=== PATIENT | female | born 2000 | race Two or more races ===

== ENCOUNTER 2019-03-02 11:23 | Emergency (ER) | payer MEDICAID ==
--- NOTE | 2019-03-02 11:36 | EDPHY ---
General Time Seen by Provider: 03/02/19 11:36 Narrative: CLINICAL IMPRESSION: Upper abdominal pain ASSESSMENT/PLAN: Patient is a 18 year old female with a history of GERD who presents with nausea since September and ongoing upper abdominal pain for 6 days. Patient is afebrile , uncomfortable however not toxic appearing. Her abdomen was soft and non distended, she is tender generalized upper abdomen without focal peritoneal signs. CBC revealed mild leukocytosis, I suspect reactive. She has had no fever , her vital signs were reviewed and there was no evidence of sepsis or serious bacterial illness. BMP, lipase and hepatic panel all grossly unremarkable. Right upper quadrant ultrasound revealed no acute findings, mildly distended gallbladder. Workup reassuring, history and physical examination is most consistent with upper abdominal pain that completely resolved with Pepcid and GI cocktail. Query other etiologies such as PUD or GB dysfunction. There were no findings to suggest acute cholecystitis, pancreatitis, acute hepatitis, hepatobiliary obstruction, perforation, mesenteric ischemia or appendicitis. She had no pelvic complaints to suggest TOA, PID or ovarian torsion. She was given Pepcid and GI cocktail with resolution of symptoms. On repeat examination the patient is much more comfortable appearing, I was unable to reproduce any abdominal pain on re-examination. With benign repeat exam I did not feel that additional imaging to include CT was warranted at this time. I had case management visit with patient to facilitate getting established with [facility], GI referral also provided. She will continue Prilosec BID and will add Zantac to regimen. Conservative return precautions discussed with patient and mother- she will return for increased or unmanageable pain, fever, vomiting, CP, SOB or for any other concerning symptom. Patient and mother verbalize understanding and are in agreement with plan. DIFFERENTIAL DX: Abdominal pain including but not limited to appendicitis, cholecystitis, gastritis and urinary tract infection. ED COURSE: 1258: On repeat examination the patient is still tearful, she reports that her pain is better after receiving Pepcid. Her abdomen is soft with very mild tenderness to palpation in the epigastrium. There was no evidence of a surgical abdomen. Patient reports that she is just very scared and that is why she is crying. Still awaiting results of right upper quadrant ultrasound. 1305: Discussed ultrasound with Dr. Canchola, normal appearing gallbladder without evidence of stones or cholecystitis. 1309: Findings discussed with Dr. Rivera. 1348: On repeat examination in after GI cocktail patient has complete resolution of her pain. Her abdomen is soft, I am unable to elicit any tenderness to palpation. CHIEF COMPLAINT: Upper abdominal pain HPI: Patient is a 18-year-old female with a history of gastroesophageal reflux who presents to the emergency department complaining of upper abdominal pain that has been ongoing since last Sunday. Patient reports a sudden onset of epigastric pain last Sunday, he has been constant in her epigastrium as well as intermittently radiating into her right and left upper abdomen. Patient does endorse a previous evaluation of her gallbladder several years prior, was told that she has an abnormal gallbladder however is not sure exactly what was wrong with it. No gallbladder surgery was recommended. She did follow up with Gastroenterology, she was placed on Prilosec which she takes twice daily. Patient was seen and evaluated at urgent care yesterday, she was given a GI cocktail with improvement of her symptoms however she had recurrent symptoms this morning. She denies any fever or change in appetite. She has been experiencing some nausea in the mornings that has been ongoing since September, this is unchanged and she has had no vomiting. She denies any chest pain or shortness of breath. She denies any lower abdominal pain, pelvic pain, flank pain, vaginal pain or urinary symptoms. Bowel movements have been regular. PMH: GERD Pertinent Past Surgical History: Denies Family History: Not contributory Social History: Denies REVIEW OF SYSTEMS: All other systems negative Constitutional: No fever, no chills, appetite change. Eyes: No discharge, vision change ENT: No sore throat, congestion, ear pain. Cardiovascular: No chest pain, no palpitations. Respiratory: No cough, no shortness of breath. Gastrointestinal: Nausea, Upper abdominal pain, no diarrhea. Genitourinary: No hematuria, dysuria, flank pain, pelvic pain. Musculoskeletal: No back pain, joint swelling, joint pain, myalgias. Skin: No rashes, color change. Neurological: No headache, dizziness, weakness. PHYSICAL EXAM: General Appearance: Alert, tearful, uncomfortable appearing however not toxic appearing. HENT: Normocephalic, atraumatic. Bilateral external ears are normal. Bilateral tympanic membranes are normal with pearly templeton reflex. Nares are clear, mucosa is pink. Oropharynx is clear, mucosa moist, uvula is midline. There is no tonsillar enlargement or exudate. The dentition is normal. Eyes: PERRLA, EOMI. Conjunctiva pink, no pallor or injection. Neck: Supple, nontender, no lymphadenopathy, no midline pain, FROM. Respiratory: There are no retractions, lungs are clear to auscultation. Cardiac: Regular rate and rhythm, no murmurs or gallops. Gastrointestinal: Abdomen is soft, bowel sounds normal, no masses/hernia. Patient is diffusely tender in her upper abdomen, she grimaces during examination however there is no rigidity, guarding or focal peritoneal findings. She has no lower abdominal tenderness to palpation. Neurological: Alert and oriented x 3, CN 2-12 grossly intact, normal gait no ataxia, DTR's intact, normal sensation and strength. Skin: Warm, dry, no rashes, no nodules on palpation. Musculoskeletal: Extremities are symmetrical, full range of motion, no tenderness, deformity, swelling, or erythema. Psychiatric: Patient is oriented X 3, there is no agitation. MEDICAL DECISION MAKING: Patient was seen independently. Secondary supervising physician at time of evaluation was Dr. Rivera, he did not evaluate this patient however we discussed case, results and plan of care. Diagnosis: Upper abdominal pain. New, requires workup Summary: See Assessment and Plan for summary of ED visit Clinical lab tests: ordered / reviewed. Independent visualization of images, tracing, or specimens: Yes. Decision to obtain medical records or history from someone other than the patient: Yes, mother Review / Summarize previous medical records: Yes Discussed patient with another provider: Yes Patient Progress: Stable, discharge. - History Smoking Status: Never smoked - Objective Vital Signs: Initial Vital Signs Temperature (C) 37.4 C 03/02/19 11:26 Heart Rate 87 03/02/19 11:26 Respiratory Rate 17 03/02/19 11:26 Blood Pressure 96/77 L 03/02/19 11:26 O2 Sat (%) 98 03/02/19 11:26 O2 Delivery Mode Room Air Allergies/Adverse Reactions: No Known Allergies Allergy (Unverified 03/02/19 11:25) Home Medications: Medication Instructions Recorded Daniel 03/02/19 Laboratory Results: Laboratory Results 03/02/19 12:15 03/02/19 12:15 Medications Given: Discontinued Medications Al Hydroxide/Mg Hydroxide (Maalox Susp) 30 ml PO ONCE ONE Stop: 03/02/19 13:09 Last Admin: 03/02/19 13:25 Dose: 30 ml Famotidine (Pepcid) 20 mg IVP EDNOW ONE Stop: 03/02/19 11:52 Last Admin: 03/02/19 12:26 Dose: 20 mg Hyoscyamine Sulfate (Levsin, Hyomax-Sl) 0.25 mg PO ONCE ONE Stop: 03/02/19 13:09 Last Admin: 03/02/19 13:24 Dose: 0.25 mg Sodium Chloride (Ns) 1,000 mls @ 0 mls/hr IV ONCE ONE PRN Reason: Wide Open Stop: 03/02/19 11:52 Last Admin: 03/02/19 12:25 Dose: 1,000 mls Lidocaine (Lidocaine 2% Viscous) 15 ml PO ONCE ONE Stop: 03/02/19 13:09 Last Admin: 03/02/19 13:25 Dose: 15 ml Departure - Departure Disposition: Home, Routine, Self-Care Clinical Impression: Abdominal pain Condition: Good Instructions: Acute Abdominal Pain (ED) Additional Instructions: DISCHARGE INSTRUCTIONS FROM YOUR DOCTOR Thank you for visiting our emergency department today. Please keep in mind that discharge from the emergency department does not mean that there is nothing wrong - it simply means that we have not identified an emergency condition that requires further evaluation or treatment in the hospital. Please call to schedule an appointment to establish care [facility], please also call Gastroenterology to be seen next week. You may need additional testing to include an upper endoscopy or HIDA scan to further evaluate her gallbladder. Rest, push non-diuretic, non-caffeinated fluids, clear liquid diet, then a BRAT diet (bananas, rice, applesauce, toast), then slowly advance diet to normal. Attempt small frequent meals. Please avoid spicy foods or caffeine. Continued taking her Prilosec as directed, I recommend adding Zantac to her regimen-you may purchase this [id number] at the grocery store or pharmacy. Follow the instructions on the packaging. Take daily. Schedule a follow-up appointment with your primary care physician in the next 1- 2 days for re-evaluation. Bring a copy of your test results with you to that appointment. Return for increased or unmanageable pain, new site or character of pain, flank pain, groin pain, pelvic pain, development of fever, chills, recurrent vomiting , vomiting blood or coffee grounds, diarrhea, constipation, bloody stools, black tarry stools, burning or pain with urination, bloody urine, inability to urinate, decreased urine output or other signs of dehydration, dizziness, weakness, fainting, difficulty breathing or swallowing, chest pain, or for any other new, worsening or worrisome symptoms. People present with illnesses and injuries in different ways, and it is always possible that we have missed something. You may always return for re-evaluation if symptoms worsen or if they are not improving or if you develop new/different symptoms. Again, thank you for choosing our emergency department. We hope that you feel better. Please contact [facility] to schedule a follow up appointment and establish a primary care provider. You can contact the clinic at: Please contact [facility] () to schedule a follow up appointment as well. You can reach Dr. Miner's office at: *When calling to schedule your appointments let them know that the jewelry sales will be faxing over your ED report. You may call the jewelry sales as well for any help with scheduling these appointments Referrals: [facility],. [Clinic] - 1-2 days without fail Clovis Turcios MD [Medical Doctor] - 2-3 days, call for appt.
[2019-03-02] MEDS ORDERED: NS 1,000 ML IV ONE (11:51)
[2019-03-02] MEDS ORDERED: FAMOTIDINE 20 MG/2 ML SDV IVP ONE (11:51)
[2019-03-02 12:30] LABS: PLATELET COUNT 340 10^3/uL (150-400)
[2019-03-02] MEDS ORDERED: LIDOCAINE 2% VISCOUS 15 ML UDCUP PO ONE (13:08)
[2019-03-02] MEDS ORDERED: HYOSCYAMINE SULFATE 0.125 MG TAB PO ONE (13:08)
[2019-03-02] MEDS ORDERED: MAG HYDROX/AL HYDROX/SIMETH 30 ML UDCUP PO ONE (13:08)
[2019-03-02 14:49] VITALS: BP 115/78
--- NOTE | 2019-03-03 10:39 | ASMTCMCOM ---
CM Note CM Note Notes: Late Entry: This CM met with patient yesterday during her ED visit regarding establishing follow up. 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 Patient would like to establish care in [place] as she is here time buyer for school. I spoke with patient about establishing a primary care provider and she is open to this, but is also interesred in follow up with a esthetician in the [place] area. Patient prefers to call and schedule her follow up appointments herself based on her school schedule. I informed patient that I would fax her ED report to [facility] (referral to Dr. Miner) as well as [facility] on 03/03 and that she could schedule her follow up appointments. I have provided patient with ED CM contact as well if she has any questions or difficulty getting scheduled. This CM has contacted [facility] regarding referral to Dr. Miner on 03/02, and have faxed ED report/referrals to both [facility] and [facility] this morning Date Signed: 03/03/2019 10:22 AM Electronically Signed By:Anel Castro RN
== END 2019-03-02 14:48 | disposition home or self-care (01) ==
DX: R10.10 Upper abdominal pain, unspecified (principal); R11.0 Nausea; K21.9 Gastro-esophageal reflux disease without esophagitis
CPT/HCPCS: 96374